=== PATIENT | female | born 1955 | race Caucasian/White ===

== ENCOUNTER 2019-04-29 20:07 | Emergency (ER) | payer MEDICARE, MEDICAID, SELFPAY ==
--- NOTE | 2019-04-29 20:26 | XR_ITS ---
WS: [id number] Right arm and humerus, 2 views, 04/29/2019 Clinical Data: PAIN Comparison: None. Findings: No fractures or dislocations are seen. The shaft of the humerus is intact. XR/[place] [id number] Impression: Negative right arm and humerus.
--- NOTE | 2019-04-29 20:26 | XR_ITS ---
WS: [id number] Right shoulder, 3 views, 04/29/2019 Clinical Data: PAIN Comparison: None. Findings: No fractures or dislocations are seen. The AC joint is normal. The adjacent right clavicle, right sca pula and ribs are normal. The soft tissues are unremarkable. XR/XR shoulder RT min 2V* [id number] Impression: Negative right shoulder.
[2019-04-29 21:14] VITALS: BP 145/98; PULSE 124; RESP 19; TEMP 37.2; O2SAT 98; BMI 20.7
--- NOTE | 2019-04-29 21:16 | ED_ITS ---
Entered by Sandra Shrestha acting as scribe for Jane Amezquita Apr 29, 2019 20:07 HPI - General Adult General: Chief complaint: General Medical Stated complaint: right side, shoulder, arm pain Time Seen by Provider: 04/29/19 21:14 Source: patient and RN notes reviewed Mode of arrival: ambulatory Limitations: no limitations History of Present Illness: HPI narrative: 63 yo female presents to ED with R side, R arm and R shoulder pain. She states she bent over to unload washing machine and strained her R side. The patient denies other symptoms at this time. MD complaint: R side, R arm, R shoulder pain Onset (ago): hour(s) (1) Location: right (side, arm, shoulder) Radiation: non-radiation Severity: moderate Quality: aching and constant Pain Consistency: constant Relieving factors: none Exacerbating factors: none Associated symptoms: Reports no associated symptoms; Deny chest pain, confusion, diaphoresis, dyspnea, headache(s), malaise, nausea, rash, palpitations, syncope or vomiting Treatments prior to arrival: none Review of Systems General: Reports: other (negative unless marked) Const: Denies: fever, chills, body aches, fatigue, malaise or diaphoresis Eyes: Denies: change in vision or blurry vision ENMT: Denies: throat pain, painful swallowing, hoarseness, ear pain, ear discharge, Change in hearing or nasal discharge Card: Denies: chest pain, palpitations, irregular heart rhythm, syncope, pre- syncope, shortness of breath on exertion or shortness of breath when lying down Resp: Denies: shortness of breath, productive cough, non-productive cough, wheezing, coughing up blood or chest congestion GI: Denies: abdominal pain, nausea, vomiting, vomiting blood, coffee grounds in vomit, diarrhea, constipation, cramping, blood in stool or black tarry stool : Denies: flank pain, painful urination, urinary frequency, urinary urgency, decreased urine ouput, urinary incontinence or blood in urine Musc: Denies: neck pain, back pain, extremity pain, extremity swelling, joint swelling, joint warmth or joint stiffness Skin/Breast: Denies: rash, skin tenderness or yellow skin Neuro: Denies: headache, numbness in extremities, weakness in extremities, changes in sensation, lack of coordination, difficulty walking, dizziness, vertigo or confusion Endo: Denies: excessive thirst, tired all the time, cold intolerance, excessive sweating, flushing or hot flashes Marv/Lymph: Denies: easy bruising, easy bleeding, petechiae or enlarged lymph nodes All/Imm: Denies: hives, throat swelling, tongue swelling, facial swelling or acute wheezing PFSH ED PFSH: Social History Smoking and tobacco status: current every day smoker Alcohol intake: never Physical Exam Const: COMMON NORMALS: no apparent distress, oriented x3, no limitations, healthy appearing and well nourished EXAM LIMITATIONS: no altered mental status GENERAL APPEARANCE: cooperative, well kempt and well developed ORIENTATION/CONSCIOUSNESS: Yes awake HENMT: COMMON NORMALS: normocephalic, head/scalp atraumatic, hearing grossly normal bilaterally, external ears normal, EAC's normal, external nose normal and moist oral mucous membranes HEAD & SCALP: normal to inspection, normocephalic and atraumatic FACE & SINUS: normal facial exam and face symmetric NOSE: external nose normal and nares normal EXTERNAL EAR: Yes external ears normal EXTERNAL AUDITORY CANAL: EAC's normal MOUTH: oral and palatal mucosa normal and tongue normal Eye: COMMON NORMALS: PERRL, EOMs intact bilaterally, conjunctivae normal and no scleral icterus GENERAL EYE: normal appearance of both eyes and normal light reflex CONJUNCTIVA: Yes conjunctivae normal SCLERA: sclerae normal CORNEA: Yes corneas normal PUPIL: Yes PERRL DIRECT OPHTHALMOSCOPY: Yes normal light reflex Neck/C-Spine: COMMON NORMALS: full ROM, no lymphadenopathy, supple, no meningeal signs and no JVD GENERAL: Yes normal visual inspection and Yes trachea midline CERVICAL SPINE: Yes cervical ROM normal Chest: COMMONS NORMALS: inspection of chest normal and palpation of chest normal Resp: COMMON NORMALS: normal respiratory effort, no retractions, no use of accessory muscles and clear to auscultation bilaterally EFFORT & INSPECTION: Yes able to speak in complete sentences AUSCULTATION: clear to auscultation bilaterally Cardio: COMMON NORMALS: no JVD, regular rate, regular rhythm, S1 normal heart sound, S2 normal heart sound, no gallops, no clicks, no murmurs and no rub JUGULAR VENOUS DISTENTION: no JVD RATE: regular rate RHYTHM: regular rhythm HEART SOUNDS: S1 normal and S2 normal GI: COMMON NORMALS: soft to palpation, non-tender, no hepatosplenomegaly and no masses INSPECTION: Yes normal to inspection PALPATION: Yes soft and Yes no hepatosplenomegaly : COMMON NORMALS: Yes no CVA tenderness BLADDER/KIDNEY EXAM: Yes no CVA tenderness Back/Pelvis: COMMON NORMALS: no CVA tenderness, thoracic and lumbar spine normal to inspection, no thoracic nor lumbar tenderness and thoraco-lumbar ROM normal Extremity: COMMON NORMALS: normal to inspection, full ROM, normal capillary refill, no joint enlargement, no clubbing, cyanosis or edema and no calf tenderness Neuro: COMMON NORMALS: oriented x3, CN's II-XII intact bilaterally, moves all extremities, no focal motor deficits and no sensory deficits noted MENINGEAL SIGNS: Yes no meningeal signs Psych: COMMON NORMALS: mental status grossly normal, thought process normal, cooperative, affect normal, speech normal and activity/motor behavior normal APPEARANCE: Yes well kempt SPEECH: Yes normal speech THOUGHT PROCESS: normal thought process Skin: COMMON NORMALS: no rashes or lesions noted, skin turgor normal, no jaundice, no petechiae and no mottling GENERAL SKIN EXAM: no rashes or le sions noted and turgor normal Course Vital Signs: Vital signs: Vital Signs Temperature 98.9 F 04/29/19 21:14 Pulse Rate 107 H 04/29/19 21:37 Respiratory Rate 16 04/29/19 21:37 Blood Pressure 144/95 04/29/19 21:37 Pulse Oximetry 96 04/29/19 21:37 MDM - General Adult MDM Narrative: Medical decision making narrative: Jono is a nice 63-year-old female who comes in with right-sided shoulder pain. She is feels like she may have stretched this too far when she was reaching into the washing machine. She denies any chest pain, shortness of breath, abdominal pain or other injury. The patient has reproduction of her pain when she moves her shoulder but she has full range of motion of her shoulder. X-rays are negative. I will go ahead and discharge her home with medication for pain and a sling. She agrees to follow- up with orthopedics if her symptoms continue. Imaging Data^: Xray Ortho: My impression: Right shoulder -no acute findings Right humerus -no acute findings Discharge Plan Discharge Patient Disposition: Home, Self-Care Clinical Impression: Right shoulder strain Qualifiers: Encounter type: initial encounter Qualified Code(s): S46.911A - Strain of unspecified muscle, fascia and tendon at shoulder and upper arm level, right arm, initial encounter Condition: Stable Prescriptions: New ibuprofen 600 mg tablet 600 mg PO TID PRN (Reason: pain) Qty: 30 RF: 0 No Action hydrocodone-acetaminophen 5-325 mg tablet 1 tab PO TID PRN (Reason: pain) 30 Days Qty: 70 RF: 0 carisoprodol [Soma] 350 mg tablet 350 mg PO TID 30 Days Qty: 70 RF: 3 trazodone 100 mg tablet 100 mg PO BID 30 Days Qty: 60 RF: 5 sumatriptan succinate 100 mg tablet 100 mg PO ONCE PRN (Reason: migraine headache) 30 Days Qty: 30 RF: 5 oxybutynin chloride 10 mg tablet extended release 24hr 10 mg PO DAILY 30 Days Qty: 30 RF: 5 loratadine 10 mg capsule 10 mg PO DAILY 30 Days Qty: 30 RF: 5 famotidine 20 mg tablet 20 mg PO DAILY 30 Days Qty: 30 RF: 5 citalopram 20 mg tablet 20 mg PO DAILY 30 Days Qty: 30 RF: 3 albuterol sulfate [ProAir HFA] 90 mcg/actuation HFA aerosol inhaler 2 puff INHALATION QID 30 Days Qty: 2 RF: 5 Discharge Orders: Discharge Order (Routine); Ordered 04/29/19 Ordered By: Jane Amezquita Referrals: Chinyere Rosales MD [Primary Care Provider] - 1-3 days Discharge Diet: Advance as tolerated Discharge Activity: Increase activity as tolerated Patient Instructions: Rotator Cuff Injury (ED) Activity Restrictions/Additional Instructions: Please return to the ER immediately for any of the signs or symptoms listed on your discharge instruction sheets, worsening/changing of your symptoms, you are not getting better as quickly as expected, or for ANY other cause or concerns. Discharge Date/Time: 04/29/19 21:42 Coding Level of Care Code ED Shot Packer for Chg Fwd Exam Comprehensive The documentation recorded by the Henrietta otero Valerie R accurately reflects the service I personally performed and the decisions made by Bia abdi Eli N Apr 29, 2019 20:07
[2019-04-29] MEDS: HYDROcodone-acetaminophen 5-325 mg Tablet 1 TAB PO (21:33)
[2019-04-29 21:37] VITALS: BP 144/95; PULSE 107; RESP 16; O2SAT 96
== END 2019-04-29 21:42 | disposition home or self-care (01) ==
PROVIDERS: Emergency Provider Emergency Medicine; PCP Family Medicine
DX: S46.911A Strain of unspecified muscle, fascia and tendon at shoulder and upper arm level, right arm, initial encounter (principal); F17.200 Nicotine dependence, unspecified, uncomplicated; X50.0XXA Overexertion from strenuous movement or load, initial encounter
CPT/HCPCS: 12345; 73030; 73060; 99281; 99283

== ENCOUNTER → 2019-07-22 09:41 | Outpatient (BNVA) | payer MEDICARE, MEDICAID, SELFPAY | PROVIDERS: PCP Family Medicine; Visit Provider Nurse Practitioner Family | DX: N30.01 Acute cystitis with hematuria (principal); J02.9 Acute pharyngitis, unspecified; R30.0 Dysuria | CPT/HCPCS: 80053; 81003; 87077; 87086; 87186 ==

== ENCOUNTER 2019-08-05 07:00 | Outpatient (CLI) | payer MEDICARE, MEDICAID, SELFPAY ==
--- NOTE | 2019-08-05 07:15 | MR_ITS ---
WS: [id number] MRI RIGHT SHOULDER NONCONTRAST TECHNIQUE: Sagittal T2, coronal T1, T2 and proton density imaging. Axial gradient PDE imaging. CLINICAL INFORMATION: M25.511 Pain in right shoulder COMPARISON: None. FINDINGS: Moderate hypertrophic changes at the AC joint. Small amount of subacromial subdeltoid fluid. Mild christine ma at the AC joint likely due to synovitis. Prominent subacromial spurring. T2 signal abnormality wit h intrasubstance tear involving the distal supraspinatus with tendinopathy. No tendon retraction. Sup raspinatus remains intact. Supraspinatus tear along the bursal and undersurface. Infraspinatus is intact. Normal teres minor. Normal subscapularis. Normal biceps tendon in the bicipital groove. Physiologic fluid along the biceps tendon sheath. Subsc apularis is intact. Fluid in subcoracoid bursa. Glenoid labrum appears grossly intact. Fraying of the glenoid labrum. MR/MR shoulder RT wo con* [id number] IMPRESSION: 1. Intrasubstance tear measuring 50 percent involving the distal supraspinatus . No tendon retraction. Associated tendinopathy. 2. Rotator cuff is otherwise intact. 3. Normal biceps tendon in the bicipital groove. 4. Moderate degenerative arthritis at the AC joint with mild edema and a small amount of subacromial/subdeltoid fluid. 5. Degenerative fraying of the glenoid labrum. No gross labral tears.
== END 2019-08-05 07:01 | disposition home or self-care (01) ==
LOC: RADSHAW 07:06
PROVIDERS: PCP Family Medicine; Visit Provider Nurse Practitioner Family
DX: M25.511 Pain in right shoulder (principal); M19.011 Primary osteoarthritis, right shoulder
CPT/HCPCS: 73221

== ENCOUNTER 2020-09-17 13:20 | Outpatient (CLI) | payer MEDICARE, MEDICAID, SELFPAY ==
--- NOTE | 2020-09-17 13:32 | MR_ITS ---
WS: [id number] MRI LUMBAR SPINE NONCONTRAST HISTORY: RADICULOPATHY LUMBAR Region; back PAIN COMPARISON: 09/13/2015 TECHNIQUE: Sagittal and axial multisequence imaging is submitted. Thoracolumbar curvature. T3, T8 and T12 hemangiomas. Posterior lumbar alignment is normal. Disc spaces and vertebral body heights are well-preserved. Conus terminates normally at L2. L1-L2: Normal. L2-L3: Mild bilateral ligamentum flavum and facet arthritis. No stenosis. L3-L4: Mild bilateral ligamentum flavum and facet joint arthritis. Very slight encroachment upon the ventral thecal sac with no stenosis. Moderate bilateral ligamentum flavum disease and facet arthritis . Encroachment into the thecal sac and subarticular recesses resulting in mild central and bilateral subarticular and RIGHT foraminal stenosis. L4-L5: Mild annular disc bulging with no stenosis. There is increased T2 signal in the facet joints b ilaterally. L5-S1: Moderate bilateral facet joint arthritis. Very slight encroachment into the subarticular reces ses. No high-grade stenosis. Prior RIGHT nephrectomy. Extensive atherosclerotic changes are noted within the visualized aorta. MR/MR lumbar spine wo con* [id number] IMPRESSION: 1. Bilateral mild L4-5 facet joint synovitis, acute. 2. Mild central, bilateral subarticular recess and RIGHT foraminal stenosis at L3-4. Mild progression since the prior study. 3. No high-grade central or foraminal stenosis.
== END 2020-09-17 13:21 | disposition home or self-care (01) ==
LOC: RADSHAW 13:23
PROVIDERS: PCP Family Medicine; Visit Provider Family Medicine
DX: M54.16 Radiculopathy, lumbar region (principal); M54.5 Low back pain; M65.88 Other synovitis and tenosynovitis, other site; M48.061 Spinal stenosis, lumbar region without neurogenic claudication
CPT/HCPCS: 72148

== ENCOUNTER → 2020-09-22 11:46 | Outpatient (BNVA) | payer MEDICARE, MEDICAID, SELFPAY | PROVIDERS: PCP Family Medicine; Visit Provider Family Medicine | DX: F33.1 Major depressive disorder, recurrent, moderate (principal); G89.4 Chronic pain syndrome; M48.061 Spinal stenosis, lumbar region without neurogenic claudication; M62.838 Other muscle spasm | CPT/HCPCS: 80053; 85025 ==

== ENCOUNTER → 2020-10-14 08:32 | Outpatient (BNVA) | payer MEDICARE, MEDICAID, SELFPAY | PROVIDERS: PCP Family Medicine; Referring Provider Family Medicine; Visit Provider Anesthesiology Pain Medicine | DX: G89.29 Other chronic pain (principal); M47.816 Spondylosis without myelopathy or radiculopathy, lumbar region; M51.36 Other intervertebral disc degeneration, lumbar region; F17.210 Nicotine dependence, cigarettes, uncomplicated; Z79.891 Long term (current) use of opiate analgesic | CPT/HCPCS: 99204 ==

== ENCOUNTER → 2020-11-09 10:50 | Outpatient (BNVA) | payer MEDICARE, MEDICAID, SELFPAY | PROVIDERS: PCP Family Medicine; Visit Provider Family Medicine | DX: F33.1 Major depressive disorder, recurrent, moderate (principal); F41.9 Anxiety disorder, unspecified; M51.36 Other intervertebral disc degeneration, lumbar region; F41.1 Generalized anxiety disorder | CPT/HCPCS: 80053; 85025 ==

== ENCOUNTER → 2020-11-16 16:56 | Outpatient (BNVA) | payer MEDICARE, MEDICAID, SELFPAY | PROVIDERS: PCP Family Medicine; Visit Provider Family Medicine | DX: E04.9 Nontoxic goiter, unspecified (principal); E78.5 Hyperlipidemia, unspecified; G47.00 Insomnia, unspecified; M25.532 Pain in left wrist; E55.9 Vitamin D deficiency, unspecified; Z90.710 Acquired absence of both cervix and uterus; Z90.5 Acquired absence of kidney; Z90.49 Acquired absence of other specified parts of digestive tract | CPT/HCPCS: 73110 ==

== ENCOUNTER → 2020-12-15 09:51 | Outpatient (BNVA) | payer MEDICARE, MEDICAID, SELFPAY | PROVIDERS: PCP Family Medicine; Visit Provider Anesthesiology Pain Medicine | DX: G89.4 Chronic pain syndrome (principal); M47.816 Spondylosis without myelopathy or radiculopathy, lumbar region; M51.36 Other intervertebral disc degeneration, lumbar region; M79.604 Pain in right leg; M79.605 Pain in left leg; Z79.891 Long term (current) use of opiate analgesic | CPT/HCPCS: 99214 ==

== ENCOUNTER → 2021-01-05 13:42 | Outpatient (BNVA) | payer MEDICARE, MEDICAID, SELFPAY | PROVIDERS: PCP Family Medicine; Visit Provider Anesthesiology Pain Medicine | DX: M54.16 Radiculopathy, lumbar region (principal); M48.061 Spinal stenosis, lumbar region without neurogenic claudication; F17.200 Nicotine dependence, unspecified, uncomplicated; Z79.891 Long term (current) use of opiate analgesic | CPT/HCPCS: 64483; 64484; J1100; J3490 ==

== ENCOUNTER → 2021-01-06 11:53 | Outpatient (BNVA) | payer MEDICARE, MEDICAID, SELFPAY | PROVIDERS: PCP Family Medicine; Visit Provider Nurse Practitioner Family | DX: J41.0 Simple chronic bronchitis (principal); Z78.0 Asymptomatic menopausal state; J40 Bronchitis, not specified as acute or chronic; E55.9 Vitamin D deficiency, unspecified | CPT/HCPCS: 71046; 80053; 82306; 82607; 82746 ==

== ENCOUNTER → 2021-01-26 10:01 | Outpatient (BNVA) | payer MEDICARE, MEDICAID, SELFPAY | PROVIDERS: PCP Family Medicine; Visit Provider Anesthesiology Pain Medicine | DX: G89.4 Chronic pain syndrome (principal); M47.816 Spondylosis without myelopathy or radiculopathy, lumbar region; M51.36 Other intervertebral disc degeneration, lumbar region; M79.604 Pain in right leg; M79.605 Pain in left leg; F17.200 Nicotine dependence, unspecified, uncomplicated; Z79.891 Long term (current) use of opiate analgesic | CPT/HCPCS: 99214 ==

== ENCOUNTER → 2021-04-14 09:32 | Outpatient (BNVA) | payer MEDICARE, MEDICAID, SELFPAY | PROVIDERS: PCP Family Medicine; Visit Provider Anesthesiology Pain Medicine | DX: G89.29 Other chronic pain (principal); M47.816 Spondylosis without myelopathy or radiculopathy, lumbar region; M51.36 Other intervertebral disc degeneration, lumbar region; M79.604 Pain in right leg; M79.605 Pain in left leg; F17.210 Nicotine dependence, cigarettes, uncomplicated; Z79.891 Long term (current) use of opiate analgesic | CPT/HCPCS: 99214 ==

== ENCOUNTER → 2021-05-03 14:15 | Outpatient (BNVA) | payer MEDICARE, MEDICAID, SELFPAY | PROVIDERS: PCP Family Medicine; Visit Provider Anesthesiology Pain Medicine | DX: F17.210 Nicotine dependence, cigarettes, uncomplicated (principal); Z79.891 Long term (current) use of opiate analgesic; M47.816 Spondylosis without myelopathy or radiculopathy, lumbar region | CPT/HCPCS: 64493; 64494; 64495; J3490 ==

== ENCOUNTER → 2021-05-24 14:03 | Outpatient (BNVA) | payer MEDICARE, MEDICAID, SELFPAY | PROVIDERS: PCP Family Medicine; Visit Provider Anesthesiology Pain Medicine | DX: F17.210 Nicotine dependence, cigarettes, uncomplicated (principal); Z79.891 Long term (current) use of opiate analgesic; M47.816 Spondylosis without myelopathy or radiculopathy, lumbar region | CPT/HCPCS: 64493; 64494; 64495; J3490 ==

== ENCOUNTER → 2022-05-15 14:07 | Outpatient (BNVA) | payer MEDICARE, MEDICAID, SELFPAY | PROVIDERS: PCP Family Medicine; Visit Provider Family Medicine | DX: M35.3 Polymyalgia rheumatica (principal) | CPT/HCPCS: 80053; 85025; 85652 ==

== ENCOUNTER 2022-06-22 10:20 | Outpatient (CLI) | payer MEDICARE, MEDICAID, SELFPAY ==
--- NOTE | 2022-06-22 10:37 | XR_ITS ---
WS: [id number] Chest 2 views, 06/22/2022 Clinical Data: persistent cough Comparison: PA and lateral chest, 01/06/2021 Findings: No nodules, masses or effusions are seen. The heart is normal. The pulmonary vascularity is not increased. No pneumonia or pneumothorax is seen. The chronic right and left cardiac borders adam in the same. The aortic arch and descending thoracic aorta show calcification and minimal tortuosity. The diaphragms are flattened. There are cholecystectomy clips in the right upper quadrant. XR/XR chest 2V* [id number] Impression: Atherosclerosis and hyperinflation.
--- NOTE | 2022-06-22 10:37 | XR_ITS ---
WS: [id number] Left knee, 3 views, 06/22/2022 Clinical Data: M25.50 - Pain in unspecified joint Comparison: None. Findings: No fractures or dislocations are seen. There is minimal chondral cartilage calcification in the later al joint space. There is a small spur of the anterior superior patella. The soft tissues are unremark able. XR/XR knee LT 3V* [id number] Impression: Minimal chondral cartilage calcification of the lateral joint space and small a nterior superior left patellar spur. Kellgren-Miguel Classification: grade 1 (doubtful): doubtful joint space narr owing and possible osteophytic lipping
== END 2022-06-22 10:21 | disposition home or self-care (01) ==
LOC: RAD 10:26
PROVIDERS: PCP Family Medicine; Visit Provider Family Medicine
DX: R05.3 Chronic cough (principal); M25.762 Osteophyte, left knee; M25.562 Pain in left knee; R91.8 Other nonspecific abnormal finding of lung field; I70.0 Atherosclerosis of aorta
CPT/HCPCS: 71046; 73562

== ENCOUNTER → 2022-07-13 11:30 | Outpatient (BNVA) | payer MEDICARE, MEDICAID, SELFPAY | PROVIDERS: PCP Family Medicine; Visit Provider Family Medicine | DX: E55.9 Vitamin D deficiency, unspecified (principal); M25.462 Effusion, left knee; M25.562 Pain in left knee; F41.1 Generalized anxiety disorder; M25.50 Pain in unspecified joint; J41.0 Simple chronic bronchitis; G89.29 Other chronic pain | CPT/HCPCS: 80053; 84443; 85025; 85651; 86038; 86140; 86431 ==

== ENCOUNTER → 2022-07-25 14:21 | Outpatient (BNVA) | payer MEDICARE, MEDICAID, SELFPAY | PROVIDERS: PCP Family Medicine; Visit Provider Orthopaedic Surgery | DX: M25.462 Effusion, left knee (principal); M25.562 Pain in left knee | CPT/HCPCS: 20610; 80503; 89050; 99203; J0702; J3490 ==

== ENCOUNTER 2022-08-15 14:13 | Outpatient (CLI) | payer MEDICARE, MEDICAID, SELFPAY ==
--- NOTE | 2022-08-15 14:30 | MR_ITS ---
WS: [id number] MRI LEFT KNEE NONCONTRAST TECHNIQUE: Axial PD, coronal PD fat sat, coronal PD, sagittal PD, and sagittal PD fat-sat images obta ined. CLINICAL INFORMATION: M25.462 - Effusion, left knee COMPARISON: None. FINDINGS: Distal quadriceps and patella tendons are intact. Moderate suprapatellar effusion. Prepatellar and in frapatellar soft tissue edema. Prominent diffuse soft tissue edema about the knee joint. ACL and PCL are intact. Hypertrophic patella. Chronic thinning of the medial and lateral meniscus. Chronic intras ubstance signal abnormality involving the posterior horn medial meniscus. No definite acute appearing meniscal tears. Images degraded by motion. Moderate chondromalacia patella. Normal medial and lateral patellar retinaculum. Edema in the poplit eal fossa. Medial and lateral collateral ligaments appear intact. Diffuse edema involving the medial and lateral femoral condyles nonspecific but may be degenerative v ersus contusion. Grade II to III chondromalacia involving the joint compartments. Recommend correlati on with history of trauma. Also recommend correlation for infection. MR/MR knee LT wo con* [id number] IMPRESSION: Images degraded by motion. 1. ACL and PCL are intact. 2. No acute appearing meniscal tears. 3. Diffuse soft tissue edema about the RIGHT knee involving the prepatellar an d infrapatellar soft tissues and along the joint line. Moderate suprapatellar e ffusion. Findings may be inflammatory or posttraumatic. Also recommend correlat ion for soft tissue infection or recent trauma. 4. Bone marrow edema involving the medial and lateral femoral condyles and adj acent medial tibial plateau nonspecific but may be degenerative or posttraumati c. 5. Moderate joint space narrowing with grade II chondromalacia. 6. Moderate chondromalacia patella. 7. No other acute findings. Outbridge grading: grade III: partial-thickness cartilage loss with focal ulcer ation
== END 2022-08-15 14:14 | disposition home or self-care (01) ==
PROVIDERS: Visit Provider Orthopaedic Surgery
DX: M25.462 Effusion, left knee (principal); R93.6 Abnormal findings on diagnostic imaging of limbs; M22.42 Chondromalacia patellae, left knee
CPT/HCPCS: 73721

== ENCOUNTER → 2022-08-16 14:55 | Outpatient (BNVA) | payer MEDICARE, MEDICAID, SELFPAY | PROVIDERS: Visit Provider Nurse Practitioner Family | DX: M25.562 Pain in left knee (principal); G89.29 Other chronic pain | CPT/HCPCS: 99214 ==

== ENCOUNTER → 2022-10-19 14:21 | Outpatient (BNVA) | payer MEDICARE, MEDICAID, SELFPAY | PROVIDERS: Visit Provider Family Medicine | DX: Z02.89 Encounter for other administrative examinations (principal); M25.50 Pain in unspecified joint; M48.061 Spinal stenosis, lumbar region without neurogenic claudication | CPT/HCPCS: 80307; 80324; 80359 ==

== ENCOUNTER → 2023-03-12 14:47 | Outpatient (BNVA) | payer MEDICARE, MEDICAID, SELFPAY | PROVIDERS: Visit Provider Nurse Practitioner Family | DX: M16.12 Unilateral primary osteoarthritis, left hip (principal); M25.552 Pain in left hip | CPT/HCPCS: 73502 ==

== ENCOUNTER 2023-05-04 11:59 | Emergency (ER) | payer MEDICARE, MEDICAID, SELFPAY ==
[2023-05-04 12:12] VITALS: BP 168/110; PULSE 89; RESP 14; TEMP 37; O2SAT 95
--- NOTE | 2023-05-04 12:22 | XR_ITS ---
WS: [id number] Exam: XR chest 1V [id number] Date/Time of Exam: 05/04/2023 12:22 PM Reason For Exam: shortness of breath Comparison 06/22/2022. The lungs are clear and fully inflated. Normal cardiomediastinal silhouette and regional bony element s. No pleural effusion. IMPRESSION: 1. Negative chest.
--- NOTE | 2023-05-04 12:41 | ECG_ITS ---
[facility] Test Date: 2023-05-04 Pat Name: Neo Duque Department: Room: Gender: Female Radio Station Operator: : [id number] Requested By: Melissa Walls Order Number: [id number] Umang MD: Edi Sharpe M.D. Measurements Intervals [place] Rate: 87 P: 60 HI: 172 QRS: 48 QRSD: 89 T: 35 QT: 372 QTc: 449 Interpretive Statements SINUS RHYTHM LEFT ATRIAL ENLARGEMENT [-0.15mV P-WAVE IN V1/V2] Compared to ECG 12/03/2015 15:05:50 Sinus tachycardia no longer present Electronically Signed On 05-04-2023 14:12:18 CDT by Edi Sharpe M.D. [id number]
[2023-05-04 13:06] LABS: Basophils # 0.1 10^3/uL (0.0-0.1); Basophils % 0.7 %; Eosinophils # 0.3 10^3/uL (0.0-0.8); Eosinophils % 3.4 %; Hematocrit 42.1 % (36-47); Lymphocytes # 2.4 10^3/uL (0.8-4.8); Lymphocytes % 27.3 %; Mean Corpuscular HGB Conc 31.1 g/dL (30-55); Mean Corpuscular Hemoglobin 27.4 pg (27-33); Mean Corpuscular Volume 88.1 fl (85-98); Monocytes # 0.6 10^3/uL (0.2-0.9); Monocytes % 6.9 %; Neutrophils # 5.43 10^3/uL (1.8-7.7); Nucleated Red Blood Cells % 0 %; Platelet Count 210 10^3/cmm (157-399); Red Blood Count 4.78 10^6/uL (3.85-5.65); Red Cell Distribution Width 14.6 % (12.1-15.1); White Blood Count 8.89 10^3/uL (3.29-11.43)
--- NOTE | 2023-05-04 13:11 | W.ED.GENADLT ---
HPI - General Adult General: Chief complaint: General Medical Stated complaint: High blood pressure, sent by dr Heaton Seen by Provider: 05/04/23 12:18 History of Present Illness: 67-year-old female with a history of tobacco dependence, migraines who presents the emergency room with hypertension. She was at clinic and was sent to the emergency room because her blood pressure was 200/120. She has a slight headache but otherwise asymptomatic. No chest pain. No shortness of breath. No dizziness. No altered mental status. No focal motor deficits. No nausea or vomiting. Review of Systems Narrative: Constitutional symptoms: Negative except as documented in HPI. Skin symptoms: Negative except as documented in HPI. Eye symptoms: Negative except as documented in HPI. ENMT symptoms: Negative except as documented in HPI. Respiratory symptoms: Negative except as documented in HPI. Cardiovascular symptoms: Negative except as documented in HPI. Gastrointestinal symptoms: Negative except as documented in HPI. Genitourinary symptoms: Negative except as documented in HPI. Musculoskeletal symptoms: Negative except as documented in HPI. Neurologic symptoms: Negative except as documented in HPI. Psychiatric symptoms: Negative except as documented in HPI. Endocrine symptoms: Negative except as documented in HPI. PFS ED PFSH: Medical History (Updated 05/04/23 @ 13:51 by Melissa Maddox MD) Insomnia Hyperlipemia Vitamin D deficiency Enlarged thyroid Generalized anxiety disorder Spinal stenosis of lumbar region Sacroiliac inflammation Chronic pain COPD (chronic obstructive pulmonary disease) Depression continue w opioid analgesics to manage some of pain no evidence of abuse at this time Anxiety Chronic migraine without aura Surgical History History of kidney removal History of appendectomy History of total hysterectomy Social History (Updated 05/04/23 @ 10:22 by Sue Maria LPN) Smoking and tobacco/nicotine status: current every day tobacco/nicotine user cigarettes Packs smoked per day: 1.5 Second hand smoke exposure: No Alcohol intake: never Substance/Drug Use: never Lives independently: Yes Household members: none Marital status: / Current occupational status: disabled Current gender identity: Female Special jasmin needs: No Agree to transfusion: Yes Female Reproductive History: Spontaneous abortions: No Physical Exam Narrative: EXAM NARRATIVE: General: Alert, no acute distress. Skin: Warm, dry. Head: Normocephalic, atraumatic. Neck: Supple, trachea midline. Eye: Extraocular movements are intact. Ears, nose, mouth and throat: mucosa moist. Cardiovascular: Regular, Normal peripheral perfusion. Respiratory: Lungs are clear to auscultation, respirations are non-labored, breath sounds are equal, Symmetrical chest wall expansion. Gastrointestinal: Soft, Nontender, Non distended, Normal bowel sounds. Musculoskeletal: Normal ROM, no deformity. Neurological: Alert and oriented, No focal neurological deficit observed. Psychiatric: Cooperative, appropriate mood & affect. Course Vital Signs: Vital signs: Vital Signs Temperature 98.6 F 05/04/23 12:12 Pulse Rate 87 05/04/23 13:26 Respiratory Rate 16 05/04/23 13:26 Blood Pressure 162/109 05/04/23 13:26 Pulse Oximetry 97 05/04/23 13:26 Oxygen Delivery Me thod Room Air 05/04/23 13:26 MDM - General Adult Medical Decision Making Medical decision making: Differential diagnosis including but not limited to and based on the above HPI, review of systems and physical exam: Patient presents with hypertension: Essential hypertension. Stroke. acute coronary syndrome. kidney failure. congestive heart failure. anxiety Orders placed to evaluate differential diagnosis based on the above differential, HPI and physical exam these include an EKG to evaluate for any ischemic changes, chest x-ray to evaluate for cardiomegaly, and basic lab work including a troponin and a BMP look at renal function. Lab Review: Laboratory results were reviewed and interpreted by myself the emergency room physician. Some mild renal insufficiency. Patient definitely needs to be on medications to control her blood pressure. I will place her on some lisinopril for now. Troponin is not elevated. She is having no cardiac symptoms. EKG: Time 12:41 PM rate 87. Normal sinus rhythm, No ST-T changes, no ectopy, normal IN & QRS intervals, This was reviewed and interpreted by myself the ER physician at 12:50 PM. Chest x-ray: No acute process. No infiltrate. No pneumothorax. No cardiomegaly. This was reviewed and interpreted by myself the ER physician. Reexamination: Patient is remained stable. No increased work of breathing. No altered mental status. No focal motor deficits. She is complaining of no chest pain. No nausea or vomiting. Lab Data 05/04/23 12:41 05/04/23 12:41 Laboratory Results WBC 8.89 10^3/uL (3.29-11.43) 05/04/23 12:41 RBC 4.78 10^6/uL (3.85-5.65) 05/04/23 12:41 Hgb 13.10 g/dL (11.27-16.99) 05/04/23 12:41 Hct 42.1 % (36-47) 05/04/23 12:41 MCV 88.1 fl (85-98) 05/04/23 12:41 MCH 27.4 pg (27-33) 05/04/23 12:41 MCHC 31.1 g/dL (30-55) 05/04/23 12:41 RDW 14.6 % (12.1-15.1) 05/04/23 12:41 Plt Count 210 10^3/cmm (157-399) 05/04/23 12:41 MPV 11.0 fL (7.4-10.4) H 05/04/23 12:41 Neut % (Auto) 61.0 % 05/04/23 12:41 Lymph % (Auto) 27.3 % 05/04/23 12:41 [place] % (Auto) 6.9 % 05/04/23 12:41 Eos % (Auto) 3.4 % 05/04/23 12:41 Baso % (Auto) 0.7 % 05/04/23 12:41 Neut # (Auto) 5.43 10^3/uL (1.8-7.7) 05/04/23 12:41 Lymph # (Auto) 2.4 10^3/uL (0.8-4.8) 05/04/23 12:41 [place] # (Auto) 0.6 10^3/uL (0.2-0.9) 05/04/23 12:41 Eos # (Auto) 0.3 10^3/uL (0.0-0.8) 05/04/23 12:41 Baso # (Auto) 0.1 10^3/uL (0.0-0.1) 05/04/23 12:41 Nucleated RBC % (auto) 0 % 05/04/23 12:41 Nucleated RBCs # 0.0 /100WBC 05/04/23 12:41 Sodium 140 mmol/L (136-145) 05/04/23 12:41 Potassium 4.0 mmol/L (3.5-5.1) 05/04/23 12:41 Chloride 105 mmol/L (98-107) 05/04/23 12:41 Carbon Dioxide 22 mmol/L (22-29) 05/04/23 12:41 Anion Gap 17.0 (5-19) 05/04/23 12:41 BUN 23 mg/dL (8-23) 05/04/23 12:41 Creatinine 1.0 mg/dL (0.5-0.9) H 05/04/23 12:41 GFR Calculation 55.1 mL/min (90-130) L 05/04/23 12:41 Glucose 92 mg/dL (65-115) 05/04/23 12:41 Calculated Osmolality 293 mOsm/kg (285-295) 05/04/23 12:41 Calcium 9.9 mg/dL (8.5-10.5) 05/04/23 12:41 Troponin T Baseline 16 ng/L (0-10) H 05/04/23 12:41 All radiology interpretation(s) finalized by discharge Other Data Assessment and plan: Essential hypertension Chronic renal insufficiency -P.o. lisinopril here. Will start her on a month supply and have her follow-up with her primary - Discharged home - Discussed findings and plan with patient. Answered any questions. - All laboratory values were reviewed and interpreted personally by myself, the ER physician - All imaging was reviewed and interpreted personally by myself, the ER physician. - Evaluation and treatment of this problem were appropriate in the emergency setting - I spent 3-4 minutes talking to the patient about tobacco cessation. We discussed the risk associated with tobacco use and the importance of stopping tobacco use. The patient does not seem receptive to the information. Discharge Plan Discharge Patient Disposition: Home Clinical Impression: Hypertension, Renal insufficiency, Tobacco dependence Condition: Stable Prescriptions: New lisinopril-hydrochlorothiazide 20-12.5 mg tablet 1 tab PO DAILY Qty: 30 0RF No Action acetaminophen [Tylenol Arthritis Pain] 650 mg tablet extended release 1,300 mg PO Q8H PRN (Reason: pain) Qty: 180 1RF diclofenac sodium [Voltaren Arthritis Pain] 1 % gel 2 g topical QID Qty: 100 0RF Rx Instructions: apply to single elbow, wrist or hand; for hand includes palm/fingers/back of hand cholecalciferol (vitamin D3) 50 mcg (2,000 unit) capsule 50 mcg PO DAILY 90 Days Qty: 90 1RF albuterol sulfate [ProAir HFA] 90 mcg/actuation HFA aerosol inhaler 2 puff INHALATION QID 30 Days Qty: 2 3RF famotidine 20 mg tablet 20 mg PO DAILY 30 Days Qty: 30 2RF sumatriptan succinate 100 mg tablet 100 mg PO ONCE PRN (Reason: migraine headache) 30 Days Qty: 30 2RF carisoprodol [Soma] 350 mg tablet 350 mg PO TID PRN (Reason: muscle pain) 30 Days Qty: 90 4RF citalopram 20 mg tablet 20 mg PO DAILY trazodone 100 mg tablet 200 mg PO BEDTIME loratadine 10 mg tablet 10 mg PO DAILY Discharge Orders: Discharge ED (Routine); Ordered 05/04/23 Ordered By: Melissa Maddox Referrals: Kalina Cortez MD [Primary Care Provider] - 4-7 days (You have been screened and evaluated and felt safe for discharge. Health conditions do change or evolve sometimes and as such it is important that you follow up with your Primary Doctor to be re checked, 3-5 days is a general good time frame for follow up. You are always welcome to return to the ED for re assessment if your symptoms are worsening or you have new concerns) Discharge Diet: Usual diet Discharge Activity: Resume usual activity Patient Instructions: How to Stop Smoking (ED), Hypertension (ED), Opioid Safety, Pain Management Coding Level of Care Code ED Pediatric Clinical Nurse Specialist for Jose Gallegos
[2023-05-04 13:26] VITALS: BP 162/109; PULSE 87; RESP 16; O2SAT 97
[2023-05-04 13:29] LABS: Blood Urea Nitrogen 23 mg/dL (8-23); Calcium 9.9 mg/dL (8.5-10.5); Carbon Dioxide 22 mmol/L (22-29); Chloride 105 mmol/L (98-107); Glomerular Filtration Rate 55.1 mL/min (90-130); Glucose 92 mg/dL (65-115); Osmolality Calculated 293 mOsm/kg (285-295); Sodium 140 mmol/L (136-145)
[2023-05-04 13:31] LABS: Troponin(5th) Baseline 16 ng/L (0-10)
[2023-05-04 14:08] VITALS: BP 156/102; PULSE 84; RESP 16; TEMP 37; O2SAT 98
== END 2023-05-04 14:09 | disposition home or self-care (01) ==
PROVIDERS: Emergency Provider Emergency Medicine; PCP Family Medicine
DX: I10 Essential (primary) hypertension (principal); N28.9 Disorder of kidney and ureter, unspecified; F17.210 Nicotine dependence, cigarettes, uncomplicated; E78.5 Hyperlipidemia, unspecified; J44.9 Chronic obstructive pulmonary disease, unspecified
CPT/HCPCS: 71045; 80048; 84484; 85025; 93005; 99285

== ENCOUNTER 2023-08-27 11:33 | Outpatient (CLI) | payer MEDICARE, MEDICAID, SELFPAY ==
--- NOTE | 2023-08-27 12:47 | XR_ITS ---
WS: [id number] XR shoulder RT min 2V* [id number] REASON FOR EXAM: M25.511 - Pain in right shoulder FINDINGS: No fracture or focal bone lesion. Significant narrowing of the glenohumeral joint with moderate osteophytosis. Glenohumeral joint space is not well demonstrated. It may be mildly narrowed. No soft tissue abnormality. XR/XR shoulder RT min 2V* [id number] IMPRESSION: Moderate osteoarthritis of the acromioclavicular joint with mild osteoarthritis of the glenohumeral joint.
--- NOTE | 2023-08-27 12:47 | XR_ITS ---
WS: [id number] [id number] REASON FOR EXAM: M89.8X1 - Other specified disorders of bone, shoulder FINDINGS: No fracture or focal bone lesion. Moderate osteoarthritis of the acromioclavicular joint. No findings of acromioclavicular joint separation. No soft tissue abnormality. XR/[place] [id number] IMPRESSION: Moderate osteoarthritis of the acromioclavicular joint without evidence of AC s eparation.
== END 2023-08-27 11:34 | disposition home or self-care (01) ==
LOC: RAD 11:34
PROVIDERS: PCP Family Medicine; Visit Provider Family Medicine
DX: M89.8X1 Other specified disorders of bone, shoulder (principal); G89.29 Other chronic pain; M19.011 Primary osteoarthritis, right shoulder; M25.711 Osteophyte, right shoulder
CPT/HCPCS: 73000; 73030

== ENCOUNTER → 2025-01-20 14:13 | Outpatient (BNVA) | payer MEDICAID, SELFPAY | PROVIDERS: PCP Family Medicine; Visit Provider Family Medicine | DX: F41.9 Anxiety disorder, unspecified (principal); F11.90 Opioid use, unspecified, uncomplicated; E55.9 Vitamin D deficiency, unspecified; R29.898 Other symptoms and signs involving the musculoskeletal system; M51.369 Other intervertebral disc degeneration, lumbar region without mention of lumbar back pain or lower extremity pain; R29.6 Repeated falls; M48.061 Spinal stenosis, lumbar region without neurogenic claudication; E03.9 Hypothyroidism, unspecified | CPT/HCPCS: 80053; 82306; 82607; 84443; 85025 ==